=== PATIENT | male | born 1985 | race Caucasian/White ===

== ENCOUNTER 2017-09-05 05:32 | Day surgery (SDC) | payer OTHER ==
[~2017-09-05] VITALS: Ht 167.6 cm; Wt 98.0 kg
[~2017-09-05 05:32] MED LIST: AMOX TR-K CLV1 EAC4 PO; EPINEPHRIN0.15 MG/0. IM; KLONOPIN0.5 M1 PO; LEXAPRO10 MG PO; METHADONE10 MG/1 M1 PO; PERCOCET 5/31 TABLET PO; PRILOSEC20 MG PO; SEROQUEL100 MG PO; VYVANSE20 MG PO; ZANTAC300 MG PO
[2017-09-05 06:39] VITALS: BP 123/82
[2017-09-05 06:43] LABS: CHLORIDE 99 MEQ/L (99-109); CREATININE 0.9 MG/DL (0.6-1.3); GFR ESTIMATE (CALCULATED) > 59 mL/min/ (58.99-99999); GLUCOSE 93 mg/dL (70-99); SODIUM 138 MEQ/L (136-147); UREA NITROGEN (BUN) 17 mg/dL (9-23)
[2017-09-05] MEDS ORDERED: COLACE100 MG PO (07:29)
[2017-09-05] MEDS ORDERED: DILAUDID4 MG PO (07:29)
[2017-09-05] MEDS ORDERED: ONDANSETRON HCL8 MG PO (07:29)
[2017-09-05] MEDS ORDERED: BRACE (09:27)
[2017-09-05 10:25] VITALS: BP 137/92
[2017-09-05 11:05] VITALS: BP 118/92
== END 2017-09-05 11:20 | disposition home or self-care (01) ==
LOC: SDC 05:32
PROVIDERS: Surgery
DX: D36.17 Benign neoplasm of peripheral nerves and autonomic nervous system of trunk, unspecified (principal); D36.12 Benign neoplasm of peripheral nerves and autonomic nervous system, upper limb, including shoulder; F41.9 Anxiety disorder, unspecified; E66.9 Obesity, unspecified; Z68.34 Body mass index [BMI] 34.0-34.9, adult; F98.8 Other specified behavioral and emotional disorders with onset usually occurring in childhood and adolescence; F81.9 Developmental disorder of scholastic skills, unspecified; G62.9 Polyneuropathy, unspecified; Z72.0 Tobacco use; Z88.0 Allergy status to penicillin
CPT/HCPCS: 80048; 88305; J0131; J0690; J2250

== ENCOUNTER → 2017-12-14 | Outpatient (CLI) | payer OTHER ==
[~2017-12-14] VITALS: Ht 168.9 cm; Wt 98.9 kg
[~2017-12-14] MED LIST changes: +BRACE; +COLACE100 MG PO; +DILAUDID4 MG PO; +ONDANSETRON HCL8 MG PO
== END | disposition home or self-care (01) ==
LOC: AMB 11-09 08:30
DX: K22.10 Ulcer of esophagus without bleeding (principal); K21.0 Gastro-esophageal reflux disease with esophagitis; Q85.00 Neurofibromatosis, unspecified
CPT/HCPCS: 88305; 88342 TC